=== PATIENT | male | born 1965 | race Caucasian/White ===

== ENCOUNTER 2017-10-29 21:28 | Emergency (ER) | payer OTHER, SELFPAY ==
[2017-10-29 21:28] VITALS: BP 160/71; PULSE 82; RESP 20; TEMP 36.8; O2SAT 98; BMI 48.9
--- NOTE | 2017-10-29 21:49 | ED.VISSUMM ---
- ER Visit Summary Date of Service: 10/29/17 Chief Complaint: Laceration to the left foot History of Present Illness: The patient is a 52 M with no primary care physician. He reports he was walking barefoot through the garage and cut his left foot on a tool. He reports he has pains when a 10 severity. He denies any paresthesias distally. His tetanus is not up-to-date. Physical Examination: Vitals: Stable. Afebrile. General: Well-nourished and well-developed. Head: Normocephalic atraumatic. Neck: Supple, no lymphadenopathy. No JVD. Nontender. Cardiovascular: Regular rate and rhythm. No murmurs. Respiratory: No respiratory distress. Clear to auscultation bilaterally. Abdominal: Soft, nontender, nondistended, normal bowel sounds. No guarding, rebound, or peritoneal signs. Back: Nontender. Extremities: 3 cm laceration on the plantar surface of his left foot distally. This is over the fourth metatarsal. This extends to the dermis only. There is no bleeding. Skin: Normal color, no rash. Neurologic: Alert and oriented ?3. Cranial nerves II through XII are intact. Normal strength and sensation. Psych: Normal affect. Emergency Department Course and Treatment: Treatment options were discussed with the patient. He would prefer to let this heal by secondary intention. I feel that is reasonable course of action. He had his tetanus updated. Treatment Plan: Patient will be discharged instructions follow-up Dr. Gee in 1 week if not improving. Return to the emergency department for any worsening symptoms. Disposition: To home in improved and stable condition. Impression: 1. Laceration left foot, 3 cm, not repaired. This note was generated with [employer] Mobile dictation software. It may contain incorrect words, spelling, and punctuation that were not noted in review of the chart prior to signing ED Disposition - Plan for ED Patient: Chief Complaint: Laceration Instructions: ED Laceration Small Superf No Sutr Referrals: Aj Gee DPM [STAFF PHYSICIAN] - 1 Week if not improving
[2017-10-29] MEDS: Diphth,Pertuss(Acell),Tet Vac 0.5 ML Vial IM (22:00)
== END 2017-10-29 22:02 | disposition home or self-care (01) ==
LOC: ED 21:57
PROVIDERS: Emergency Provider Emergency Medicine
DX: S91.312A Laceration without foreign body, left foot, initial encounter (principal); Z23 Encounter for immunization; Z87.891 Personal history of nicotine dependence; W27.8XXA Contact with other nonpowered hand tool, initial encounter; Y93.01 Activity, walking, marching and hiking; Y92.008 Other place in unspecified non-institutional (private) residence as the place of occurrence of the external cause; Y99.8 Other external cause status
CPT/HCPCS: 90471; 90715; 99283

== ENCOUNTER 2021-06-02 10:44 | Emergency (ER) | payer OTHER, SELFPAY ==
[2021-06-02 10:45] VITALS: BP 139/102; PULSE 113; RESP 16; TEMP 36; O2SAT 95; BMI 27.4
[2021-06-02 10:58] VITALS: BP 146/100; PULSE 100; RESP 18; TEMP 36.3; O2SAT 98
[2021-06-02 12:18] LABS: Absolute Lymphocyte Count 2.28 X10^3/uL (0.83-4.51); Absolute Neutrophil Count 6.1 X10^3/uL (2.0-7.7); Basophil# 0.03 X10^3/uL; Basophil% 0.3 % (0-1); Eosinophil# 0.03 X10^3/uL; Eosinophils% 0.3 % (0-5); Hematocrit 50.2 % (40-54); Hemoglobin 17.2 g/dL (13.0-16.5); Lymphocyte # 2.28 X10^3/ul (0.83-4.51); Lymphocyte % 24.7 % (19-41); Mean Corp Hgb Conc 34.3 g/dL (32-36); Mean Corpuscular Hgb 29.5 pg (27.0-32.0); Monocyte# 0.78 X10^3/uL; Monocyte% 8.4 % (0-10); NRBC Flagged by Analyzer 0 % (0-5); Neutrophil # 6.09 X10^3/uL (2.7-7.7); Platelet Count 352 K/mm3 (150-450); RBC Distribution Width CV 11.8 % (11.6-14.6); RBC Distribution Width SD 36.7 fl (35.1-43.9); Red Blood Count 5.84 M/mm3 (4.6-6.2); White Blood Count 9.2 K/mm3 (4.4-11.0)
[2021-06-02 12:29] LABS: ALB/GLOB Ratio 0.9 RATIO (0.9-2.4); AST(SGOT) 9 U/L (15-37); Alanine Aminotransfer ALT/SGPT 19 U/L (16-61); Albumin, Serum 3.9 g/dL (3.2-5.0); Alkaline Phosphatase 97 U/L (45-117); Anion Gap 11 (5-15); BUN 13 mg/dL (7-18); BUN/Creat Ratio 13.1 RATIO (10-20); Calcium,Total 9.6 mg/dL (8.5-10.1); Chloride 92 mmol/L (98-107); EST Glomerular Filtration Rate 82 mL/min (>60); Est Glom Filt Rate - Afr Amer 99 mL/min (>60); Estimated Creatinine Clearance 72.66 ml/min; Globulin 4.4 g/dL (2.2-4.2); Glucose 306 mg/dL (74-106); Lipase 52 U/L (73-393); Potassium 4.1 mmol/L (3.5-5.1); Protein, Total 8.3 g/dL (6.4-8.2); Sodium Level 131 mmol/L (136-145)
[2021-06-02 12:45] VITALS: BP 134/85; PULSE 72; RESP 14; O2SAT 98
[2021-06-02] MEDS: Ondansetron 4 MG/2 ML Vial IV (12:50)
[2021-06-02] MEDS: 0.9% Normal Saline 1,000 ML 1000 ML IV (12:50)
[2021-06-02 13:13] LABS: Mucous, Urine 0 SEEN /hpf (<or=2+); Red Blood Cells-Urine 0 SEEN /hpf (0-5); White Blood Cells 0 SEEN /hpf (0-5)
[2021-06-02 13:16] LABS: Color, Urine Yellow (Yellow); Glucose, Dipstick 1000 mg/dl (Normal); Leukocyte Esterase-Dipstick Negative /ul (Negative); Nitrite-Dipstick Negative (Negative); Occult Blood-Urine Negative /ul (Negative); Protein-Dipstick 15 mg/dl (Negative); Urine Bilirubin Dipstick Negative (Negative); Urine Clarity Clear (Clear); Urine Urobilinogen Normal (Normal)
[2021-06-02 13:28] LABS: Bacteria RARE /hpf (None Seen); Ketone-Dipstick 150 mg/dl (Negative); Squamous Epithelial Cells - UA 0-5 SEEN /hpf (0-5)
[2021-06-02 14:00] VITALS: BP 138/64; PULSE 80; RESP 16; O2SAT 98
--- NOTE | 2021-06-02 14:48 | EDS_ITS ---
HPI History of Present Illness Chief Complaint: Nausea/Vomiting Informant: patient Onset/Context/Timing Onset: Days (5) Context: Gradual Onset Timing: Continuous Quality: Dull, aching Location: Generalized abdomen Worsened by: Eating, drinking Relieved by: Nothing Narrative Narrative: Patient presents with nausea and vomiting that has been constant for the past 5 days. Patient states he has aching pain across his abdomen. Patient states it is worse whenever he tries to eat or drink anything. Patient states nothing makes it better. Patient states anytime he tries to eat or drink anything he vomits right back up. Patient denies any chest pain or shortness of breath. Patient denies any diarrhea, melena, or hematochezia. Patient denies any urinary complaints. PFSH PFSH Medical History no medical history Home Medications metformin 500 mg PO BID #14 tab 06/02/21 [Rx Last Taken Unknown] ondansetron 4 mg PO Q8H PRN PRN #10 tab 06/02/21 [Rx Last Taken Unknown] Allergy/AdvReac Type Severity Reaction Status Date / Time No Known Allergies Allergy Verified 06/02/21 10:48 Surgical History no surgical history Social History Smoking Status: Never smoker ROS ROS ED Constitutional Constitutional ED: Denies chills or fever(s) Eyes Eyes: Denies blurry vision or change in vision ENT ENT ED: Denies rhinorrhea or sore throat Cardiovascular Cardiovascular: Denies chest pain or palpitations Respiratory/Chest Respiratory/Chest: Denies cough or dyspnea Gastrointestinal Gastrointestinal: Reports nausea and vomiting; Denies abdominal pain, diarrhea or melena Genitourinary Genitourinary ED: Denies dysuria or hematuria Musculoskeletal Musculoskeletal: Reports back pain; Denies neck pain Integumentary Denies abscess or rash Neurologic Neurologic: Denies headache(s) or weakness Allergic/Immunologic Allergic/Immunologic ED: Denies mouth swelling or urticaria EXAM Physical Exam Const Vital Signs: 06/02/21 10:45 06/02/21 10:58 06/02/21 12:45 Temperature 96.8 F L 97.4 F L Temperature Source Temporal Temporal Pulse Rate 113 H 100 72 Respiratory Rate 16 18 14 Blood Pressure 139/102 H 146/100 H 134/85 H Blood Pressure Mean 114 115 101 Pulse Ox 95 98 98 Oxygen Delivery Method Room Air Room Air Room Air 06/02/21 14:00 Temperature Temperature Source Pulse Rate 80 Respiratory Rate 16 Blood Pressure 138/64 H Blood Pressure Mean 88 Pulse Ox 98 Oxygen Delivery Method Room Air Positive well nourished and well developed General Appearance ED: well developed HEENT Reports moist mucous membranes Neck supple and no JVD Resp normal respiratory effort and clear to auscultation bilaterally Cardio regular rate, regular rhythm and no murmurs GI normal to inspection, nondistended, normoactive bowel sounds GI Narrative: There is very mild diffuse tenderness. There is no rebound or guarding noted. Palpation: soft; Negative for guarding or rebound tenderness present Extremity normal to inspection General Extremety ED: Negative for edema or tenderness General Extremity: Negative for edema Neuro oriented x3, CN's II-XII intact bilaterally and no sensory deficits noted Sensorium / Orientation: alert Motor Exam: strength 5/5 throughout Psych mental status grossly normal Skin no rashes or lesions noted MDM MDM MDM Narrative Medical decision making narrative: Patient was given IV fluids and Zofran here. CBC shows a hemoglobin of 7.2 but was otherwise within normal limits. Comprehensive metabolic profile shows a glucose of 306 with a sodium of 131 and chloride of 92. Anion gap is normal. CO2 is normal. Lipase is normal. Urinalysis shows glucose of 8000 and ketones of 150. There is no evidence of ur inary tract infection. Serum acetone was ordered. This was negative. Patient was advised of his findings. Patient states he will follow-up with his 's primary care physician Dr. Gregory Barnes. Patient was instructed to follow-up in 3 to 5 days. Patient was given a prescription for Metformin. Patient was also given a prescription for Zofran. Patient was instructed to return if worse in any way. Patient understood and was agreeable with the plan. All questions were answered. Lab Data Attestation: I reviewed the patient's lab results. Labs: Laboratory Results - last 24 hr 06/02/21 06/02/21 06/02/21 11:10 11:10 13:07 WBC 9.2 RBC 5.84 Hgb 17.2 H Hct 50.2 MCV 86.0 MCH 29.5 MCHC 34.3 RDW Std Deviation 36.7 RDW Coeff of Cassy 11.8 Plt Count 352 MPV 10.0 Immature Gran % (Auto) 0.300 Neut % (Auto) 66.0 Lymph % (Auto) 24.7 [place] % (Auto) 8.4 Eos % (Auto) 0.3 Baso % (Auto) 0.3 Absolute Neuts (auto) 6.1 Absolute Lymphs (auto) 2.28 Nucleated RBC % 0 Sodium 131 L Potassium 4.1 Chloride 92 L Carbon Dioxide 28.0 Anion Gap 11 BUN 13 Creatinine 1.00 Estim Creat Clear Calc 72.66 Est GFR (MDRD) Af Amer 99 Est GFR (MDRD) Non-Af 82 BUN/Creatinine Ratio 13.1 Glucose 306 H Calcium 9.6 Total Bilirubin 1.00 AST 9 L ALT 19 Alkaline Phosphatase 97 Total Protein 8.3 H Albumin 3.9 Globulin 4.4 H Albumin/Globulin Ratio 0.9 Lipase 52 L Urine Color Yellow Urine Clarity Clear Urine pH 5.0 Ur Specific [place] 1.030 Urine Protein 15 H Urine Glucose (UA) 1000 H Urine Ketones 150 A* Urine Occult Blood Negative Urine Nitrite Negative Urine Bilirubin Negative Urine Urobilinogen Normal Ur Leukocyte Esterase Negative Urine RBC 0 SEEN Urine WBC 0 SEEN Ur Squamous Epith Cells 0-5 SEEN Urine Bacteria RARE Urine Mucus 0 SEEN Acetone Level 06/02/21 14:18 WBC RBC Hgb Hct MCV MCH MCHC RDW Std Deviation RDW Coeff of Cassy Plt Count MPV Immature Gran % (Auto) Neut % (Auto) Lymph % (Auto) [place] % (Auto) Eos % (Auto) Baso % (Auto) Absolute Neuts (auto) Absolute Lymphs (auto) Nucleated RBC % Sodium Potassium Chloride Carbon Dioxide Anion Gap BUN Creatinine Estim Creat Clear Calc Est GFR (MDRD) Af Amer Est GFR (MDRD) Non-Af BUN/Creatinine Ratio Glucose Calcium Total Bilirubin AST ALT Alkaline Phosphatase Total Protein Albumin Globulin Albumin/Globulin Ratio Lipase Urine Color Urine Clarity Urine pH Ur Specific [place] Urine Protein Urine Glucose (UA) Urine Ketones Urine Occult Blood Urine Nitrite Urine Bilirubin Urine Urobilinogen Ur Leukocyte Esterase Urine RBC Urine WBC Ur Squamous Epith Cells Urine Bacteria Urine Mucus Acetone Level NEGATIVE Discharge Plan Triage Chief Complaint: Nausea/Vomiting ED Provider: Pepe Cha Dx/Rx/DC Orders Clinical Impression: Diabetes mellitus type 2 in nonobese Instructions: ED Diabetes- Overview, ED Vomiting (Adult), ED Diet: Diabetes Prescriptions: New ondansetron [ondansetron] 4 MG tablet 4 mg PO Q8H PRN PRN (Reason: Nausea) Qty: 10 RF: 0 metformin 500 mg tablet 500 mg PO BID Qty: 14 RF: 0 Primary Care Provider: Care Physician,No Primary Referrals: Gregory Barnes DO [NON-STAFF] - 3-5 Days Care Physician,No Primary [Primary Care Provider] - Disposition Disposition: Home, Self Care
[2021-06-02 15:02] VITALS: BP 154/88; PULSE 84; RESP 16; TEMP 37.2; O2SAT 98
== END 2021-06-02 15:04 | disposition home or self-care (01) ==
PROVIDERS: Emergency Provider Emergency Medicine; Visit Provider Emergency Medicine
DX: E11.9 Type 2 diabetes mellitus without complications (principal); R11.2 Nausea with vomiting, unspecified; Z79.84 Long term (current) use of oral hypoglycemic drugs
CPT/HCPCS: 80053; 81001; 82009; 83690; 85025; 96361; 96374; 99283; J7030; A4216; J2405

== ENCOUNTER 2021-12-01 07:42 | Emergency (ER) | payer OTHER, SELFPAY ==
[2021-12-01 07:43] VITALS: BP 152/107; PULSE 51; RESP 14; TEMP 36.6; O2SAT 98; BMI 26.7
--- NOTE | 2021-12-01 07:51 | CT_ITS ---
STUDY: CT ABDOMEN AND PELVIS WITHOUT CONTRAST REASON FOR EXAM: Male, 56 years old. Diffuse abdominal pain RADIATION DOSAGE (If Supplied By Facility): CTDIvol = ( 8.38 ) mGy, DLP = ( 350.89 ) mGycm TECHNIQUE: Transaxial images were obtained from the dome of the diaphragm to the symphysis pubis without oral contrast, and without intravenous contrast. Sagittal and coronal images were reconstructed. Individualized dose optimization techniques were used for this CT. COMPARISON: None. FINDINGS: Lung bases are unremarkable aside from a 5.3 mm noncalcified nodule in the left lung base on axial image 1. Consider a dedicated CT scan of the chest to determine if any other nodules are present. The visualized portions of the heart are within normal limits. Normal liver. Normal gallbladder and extrahepatic biliary system. Normal spleen. Normal pancreas. Normal bilateral adrenal glands. Normal right kidney. Normal left kidney. Normal visualized stomach. Nondistended fluid-filled small bowel loops noted consistent with small bowel ileus this is likely due to retained stool throughout the colon. The appendix is visualized and appears normal. Appendix seen on coronal recon images 53 through 55 Normal abdominal aorta. Normal inferior vena cava. Scattered subcentimeter mesenteric and retroperitoneal lymph nodes. Normal urinary bladder. There are prostatic calcifications. Normal abdominal wall. Normal osseous structures. CT/Abdomen/Pelvis without Cont IMPRESSION: Small bowel ileus likely due to retained stool throughout the colon No free intraperitoneal fluid, air, or suspicious adenopathy, normal appendix visualized No suspicious organ abnormality 5.3 mm noncalcified nodule in the left lung base. There are no previous studies available for comparison. Consider nonemergent CT scan of the chest for further surveillance or a 6 month follow-up study to assess stability of the nodule. Electronically Signed: Souleymane Beasley MD at 8:26 EDT ,
--- NOTE | 2021-12-01 07:51 | EDS_ITS ---
HPI History of Present Illness Chief Complaint: Nausea/Vomiting Detail of Chief Complaint: Vomiting x2 days Informant: patient Onset/Context/Timing Current Severity: Mild Narrative Narrative: Patient presents to the emergency department complaint of frequent vomiting for the last 2 days. Patient states he had decreased urine output. Complains of intermittent lower abdominal pain periumbilical and right lower quadrant. Patient denies any fever. He denies diarrhea. He denies blood in the stool or black tarry stool. Denies sick contacts. Patient denies urinary symptoms. Patient is a type II diabetic and states his blood sugars have been running as high as 120 but not above. Prior similar symptoms: No PFSH PFS Medical History (Updated 12/01/21 @ 11:[address] Demario Adame DO) Diabetes Home Medications metformin 500 mg tablet 500 mg PO BID #14 tabs 06/02/21 [Rx Last Taken Unknown] insulin glargine-yfgn 100 unit/mL subcutaneous solution (Semglee (insulin glargine-yfgn)) 10 unit subcut BID 12/01/21 [History Last Taken Unknown] lisinopril 2.5 mg tablet 2.5 mg PO DAILY 12/01/21 [History Last Taken Unknown] ondansetron 4 mg disintegrating tablet 4 mg PO Q8H PRN PRN Nausea #10 tabs 12/01/21 [Rx Last Taken Unknown] promethazine 25 mg rectal suppository 25 mg IA Q6H PRN nausea and vomiting #6 ea 12/01/21 [Rx Last Taken Unknown] Allergy/AdvReac Type Severity Reaction Status Date / Time No Known Allergies Allergy Verified 12/01/21 07:44 Social History Smoking Status: Former smoker ROS ROS ED Review of Systems ROS Unobtainable: other Constitutional Constitutional ED: Reports lethargy; Denies chills, fever(s), sweats or weight loss Eyes Eyes: Denies blurry vision, change in vision or diplopia ENT ENT ED: Denies rhinorrhea or sore throat Cardiovascular Cardiovascular: Reports racing heartbeat; Denies chest pain or orthopnea Respiratory/Chest Respiratory/Chest: Reports dyspnea and dyspnea on exertion; Denies cough, orthopnea or sputum Gastrointestinal Gastrointestinal: Reports abdominal pain, nausea and vomiting; Denies diarrhea Genitourinary Genitourinary ED: Denies dysuria, hematuria or urinary frequency Musculoskeletal Musculoskeletal: Denies arthralgias, back pain, myalgias or neck pain Integumentary Denies abscess, Abrasions or rash Neurologic Neurologic: Denies headache(s) or weakness Psychiatric Psychiatric: Denies anxiety, depression or suicidal thoughts Endocrine Endocrinology: Denies polydipsia, polyphagia or polyuria Hematologic/Lymphatic Hematologic/Lymphatic: Denies easy bleeding, easy bruising or lymphadenopathy Allergic/Immunologic Allergic/Immunologic ED: Denies mouth swelling, tongue swelling or urticaria EXAM Physical Exam Const Vital Signs: 12/01/21 07:43 Temperature 97.8 F Temperature Source Temporal Pulse Rate 51 L Respiratory Rate 14 Blood Pressure 152/107 H Blood Pressure Mean 122 Pulse Ox 98 Oxygen Delivery Method Room Air Positive well nourished and well developed General Appearance ED: well developed and NAD HEENT Reports TM's clear and moist mucous membranes normocephalic and atraumatic; Negative for trauma or tenderness Tympanic Membrane ED: Yes TM's clear Eyes PERRL and EOMs intact bilaterally General Eye ED: Negative for pale conjunctiva or scleral icterus Neck no lymphadenopathy, supple and no JVD General: Negative for tenderness Chest Wall inspection of chest normal and palpation of chest normal Chest: Negative for tenderness Resp normal respiratory effort and clear to auscultation bilaterally Effort and Inspection: Negative for respiratory distress or pain with movement Auscultation: Negative for rhonchi, wheezes or diminished lung sounds Cardio regular rate, regular rhythm, S1 normal heart sound, S2 normal heart sound and no murmurs Peripheral Pulses: pulses 2+ throughout GI normal to inspection, nondistended, normoactive bowel sounds, soft to palpation, non-distended and no masses GI Narrative: Active bowel sounds noted. Patient with some tenderness to the right lower quadrant and periumbilical region. There is no rebound, rigidity, or peritoneal signs. Back/Spine no CVA tenderness and no thoracic nor lumbar tenderness Extremity normal to inspection General Extremety ED: Negative for edema General Extremity: Negative for edema Neuro oriented x3, CN's II-XII intact bilaterally, no sensory deficits noted and gait normal Sensorium / Orientation: awake, alert, oriented to person, oriented to place and oriented to time Motor Exam: strength 5/5 throughout and strength abnormal Psych mental status grossly normal Skin no rashes or lesions noted and no wounds MDM MDM MDM Narrative Medical decision making narrative: IV line established on arrival. Patient was given Zofran 4 mg IV. He did vomit 2 more times and was given Reglan 10 mg IV as well as Benadryl. He had no further vomiting. Lab work-up was unremarkable. CT scan of the abdomen pelvis showed small bowel ileus due to retained stool. Patient also had a 5.3 mm noncalcified nodule in left lung base for which they recommended a repeat CT in 6 months. I discussed all results with patient. I spoke suspect patient likely has a viral syndrome. Patient states his last bowel movement was 3 days ago which is not unusual for him. Patient will be given a prescription for Zofran ODT as well as Phenergan suppositories. He is to follow-up with primary care physician within next 3 to 5 days. Patient to return if worsening abdominal pain, fever, persistent vomiting, or condition should worsen anyway. Lab Data Attestation: I reviewed the patient's lab results. Labs: Laboratory Results - last 24 hr 12/01/21 12/01/21 12/01/21 08:30 08:30 09:18 WBC 9.8 RBC 5.34 Hgb 16.1 Hct 47.1 MCV 88.2 MCH 30.1 MCHC 34.2 RDW Std Deviation 39.7 RDW Coeff of Cassy 12.3 Plt Count 358 MPV 8.8 Immature Gran % (Auto) 0.400 Neut % (Auto) 79.4 H Lymph % (Auto) 14.4 [place] % (Auto) 5.6 Eos % (Auto) 0.0 Baso % (Auto) 0.2 Absolute Neuts (auto) 7.8 H Absolute Lymphs (auto) 1.41 Nucleated RBC % 0 Sodium 137 Potassium 3.7 Chloride 102 Carbon Dioxide 28.0 Anion Gap 7 BUN 18 Creatinine 0.99 Estim Creat Clear Calc 76.04 Est GFR (MDRD) Af Amer 100 Est GFR (MDRD) Non-Af 83 BUN/Creatinine Ratio 18.2 Glucose 125 H Calcium 9.7 Total Bilirubin 1.30 H AST 16 ALT 21 Alkaline Phosphatase 63 Total Protein 8.3 H Albumin 4.1 Globulin 4.2 Albumin/Globulin Ratio 1.0 Lipase 57 L Urine Color Yellow Urine Clarity Sl. Cloudy Urine pH 8.0 Ur Specific [place] 1.015 Urine Protein 15 H Urine Glucose (UA) Normal Urine Ketones 150 A* Urine Occult Blood Negative Urine Nitrite Negative Urine Bilirubin Negative Urine Urobilinogen 1 H Ur Leukocyte Esterase 25 H Urine RBC 0 SEEN Urine WBC 0 SEEN Ur Squamous Epith Cells 0 SEEN Amorphous Sediment 2+ Urine Bacteria 0 SEEN Urine Mucus 2+ Radiography Diagnostic Testing: Clinical Impression(s) from Imaging Studies Abdomen/Pelvis CT 12/01/21 07:51 IMPRESSION: Small bowel ileus likely due to retained stool throughout the colon No free intraperitoneal fluid, air, or suspicious adenopathy, normal appendix visualized No suspicious organ abnormality 5.3 mm noncalcified nodule in the left lung base. There are no previous studies available for comparison. Consider nonemergent CT scan of the chest for further surveillance or a 6 month follow-up study to assess stability of the nodule. Electronically Signed: Souleymane Beasley MD at 8:26 EDT Reading Location ID and State: [address] [place] [address] , Service support , Discharge Plan Triage Chief Complaint: Nausea/Vomiting ED Provider: Demario Adame Dx/Rx/DC Orders Clinical Impression: Acute viral syndrome, Vomiting Instructions: ED Viral Syndrome (Adult), ED Vomiting (Adult) Prescriptions: New ondansetron [ondansetron] 4 mg tablet,disintegrating 4 mg PO Q8H PRN PRN (Reason: Nausea) Qty: 10 0RF promethazine 25 mg suppository 25 mg IA Q6H PRN (Reason: nausea and vomiting) Qty: 6 0RF No Action metformin 500 mg tablet 500 mg PO BID Qty: 14 0RF lisinopril 2.5 mg tablet 2.5 mg PO DAILY Label Comments: TAKE 1 TABLET BY MOUTHEONCE DAILY insulin glargine-yfgn [Semglee(insulin glargine-yfgn)] 100 unit/mL solution 10 unit subcut BID Label Comments: INJECT 10 UNITSCSUBCUTANEOUSLY 2 TIMES A DAY Primary Care Provider: Gregory Barnes Referrals: Care Physician,No Primary [NON-STAFF] - Activity Restrictions/Additional Instructions: See your primary care physician in 3 to 5 days. Disposition Disposition: Home, Self Care
[2021-12-01] MEDS: 0.9% Normal Saline 1,000 ML 125 ML IV (08:23)
[2021-12-01] MEDS: Ondansetron 4 MG/2 ML Vial IV (08:23)
[2021-12-01 08:40] LABS: Absolute Lymphocyte Count 1.41 X10^3/uL (0.83-4.51); Absolute Neutrophil Count 7.8 X10^3/uL (2.0-7.7); Basophil# 0.02 X10^3/uL; Basophil% 0.2 % (0-1); Hematocrit 47.1 % (40-54); Hemoglobin 16.1 g/dL (13.0-16.5); Lymphocyte # 1.41 X10^3/ul (0.83-4.51); Lymphocyte % 14.4 % (19-41); Mean Corp Hgb Conc 34.2 g/dL (32-36); Mean Corpuscular Hgb 30.1 pg (27.0-32.0); Mean Corpuscular Volume 88.2 fL (80-94); Mean Platelet Vol. 8.8 fl (6.2-12.0); Monocyte# 0.55 X10^3/uL; Monocyte% 5.6 % (0-10); NRBC Flagged by Analyzer 0 % (0-5); Neutrophil # 7.75 X10^3/uL (2.7-7.7); Neutrophil % 79.4 % (47-70); Platelet Count 358 K/mm3 (150-450); RBC Distribution Width CV 12.3 % (11.6-14.6); RBC Distribution Width SD 39.7 fl (35.1-43.9); Red Blood Count 5.34 M/mm3 (4.6-6.2); White Blood Count 9.8 K/mm3 (4.4-11.0)
[2021-12-01 08:59] LABS: AST(SGOT) 16 U/L (15-37); Alanine Aminotransfer ALT/SGPT 21 U/L (16-61); Albumin, Serum 4.1 g/dL (3.2-5.0); Alkaline Phosphatase 63 U/L (45-117); Anion Gap 7 (5-15); BUN 18 mg/dL (7-18); BUN/Creat Ratio 18.2 RATIO (10-20); Calcium,Total 9.7 mg/dL (8.5-10.1); Chloride 102 mmol/L (98-107); Creatinine, Serum 0.99 mg/dL (0.70-1.30); EST Glomerular Filtration Rate 83 mL/min (>60); Est Glom Filt Rate - Afr Amer 100 mL/min (>60); Estimated Creatinine Clearance 76.04 ml/min; Globulin 4.2 g/dL (2.2-4.2); Glucose 125 mg/dL (74-106); Lipase 57 U/L (73-393); Potassium 3.7 mmol/L (3.5-5.1); Protein, Total 8.3 g/dL (6.4-8.2); Sodium Level 137 mmol/L (136-145)
[2021-12-01 09:28] LABS: Bacteria 0 SEEN /hpf (None Seen); Color, Urine Yellow (Yellow); Glucose, Dipstick Normal (Normal); Leukocyte Esterase-Dipstick 25 /ul (Negative); Nitrite-Dipstick Negative (Negative); Occult Blood-Urine Negative /ul (Negative); Protein-Dipstick 15 mg/dl (Negative); Red Blood Cells-Urine 0 SEEN /hpf (0-5); Specific Gravity, Urine 1.015 (1.002-1.030); Squamous Epithelial Cells - UA 0 SEEN /hpf (0-5); Urine Bilirubin Dipstick Negative (Negative); Urine Clarity Sl. Cloudy (Clear); Urine Urobilinogen 1 mg/dl (Normal); White Blood Cells 0 SEEN /hpf (0-5)
[2021-12-01 09:33] LABS: Ketone-Dipstick 150 mg/dl (Negative)
[2021-12-01 09:38] LABS: Amorphous Sediment 2+; Mucous, Urine 2+ /hpf (<or=2+)
[2021-12-01] MEDS: DiphenhydrAMINE 50 MG/ML Syringe 25 MG IV (10:04)
[2021-12-01] MEDS: Metoclopramide 10 MG/2 ML Vial IV (10:05)
[2021-12-01 11:50] VITALS: PULSE 57; RESP 17; O2SAT 97
== END 2021-12-01 11:56 | disposition home or self-care (01) ==
PROVIDERS: Emergency Provider Emergency Medicine; PCP Family Medicine; Visit Provider Emergency Medicine
DX: B34.9 Viral infection, unspecified (principal); K56.7 Ileus, unspecified; E11.9 Type 2 diabetes mellitus without complications; R11.2 Nausea with vomiting, unspecified; R91.1 Solitary pulmonary nodule; Z87.891 Personal history of nicotine dependence
CPT/HCPCS: 74176; 80053; 81001; 83690; 85025; 96361; 96374; 96375; 99282; J7030; A4216; J2405

== ENCOUNTER 2022-04-01 09:29 | Emergency (ER) | payer OTHER, SELFPAY ==
[2022-04-01 09:29] VITALS: BP 130/93; PULSE 75; RESP 16; TEMP 36.3; O2SAT 100; BMI 28.7
--- NOTE | 2022-04-01 09:37 | EDS_ITS ---
HPI History of Present Illness Chief Complaint: Nausea/Vomiting Narrative Narrative: 57-year-old male here for nausea vomiting. No abdominal pain. Symptoms going on for last 2 days. States symptoms are constant, severe without alleviating factors. States he tried Zofran with no relief. No diarrhea. No sick contacts Chart reviewed: CT scan from November 2021 shows ileus no other acute abnormality. PFSH PFSH Medical History Diabetes Home Medications metformin 500 mg tablet 500 mg PO BID #14 tabs 06/02/21 [Rx Last Taken Unknown] lisinopril 2.5 mg tablet 2.5 mg PO DAILY 12/01/21 [History Last Taken Unknown] metoclopramide HCl 5 mg tablet (Reglan) 5 mg PO Q8H PRN PRN nausea and vomiting 7 days #21 tabs 04/01/22 [Rx Last Taken Unknown] Allergy/AdvReac Type Severity Reaction Status Date / Time No Known Allergies Allergy Verified 04/01/22 09:31 Social History Smoking Status: Former smoker ROS ROS ED ROS Narrative Constitutional: Denies fever HEENT: Denies sore throat Neck: Denies neck pain Cardiovascular: Denies chest pain, syncope Respiratory: Denies shortness of breath GI: Endorses nausea and vomiting : Denies changes in urinary habits Musculoskeletal: Denies muscle or joint pain Neurologic: Denies numbness weakness or loss of sensation Skin denies rash EXAM Physical Exam Narrative Exam Narrative: Nursing triage notes reviewed, Vital signs reviewed Constitutional: please see mdm HENT: MMM Eyes: Pupils equal round and reactive to light, Extraocular muscles intact Neck: No stridor, no JVD, full neck ROM Lungs: Clear to auscultation, No wheezing or rales. No increased work of breathing, no conversational dyspnea, no accessory muscle use, no nasal flaring. No respiratory distress noted Heart: Regular rate and rhythm, No murmurs, No rubs and No gallops, 2+ distal pulses (radial, femoral, posterior tibial) in all extremities Abdomen: Soft, there is no tenderness, rigidity, rebound or guarding, no obvious peritoneal signs, no palpable pulsatile abdominal masses, no auscultated abdominal bruit : No CVAT Extremities: No edema Neuro: No focal neurological deficits, cranial nerves II through XII intact, 5/5 strength in all extremities. Intact sensation to light touch in all extremities, 2+ reflexes bilateral patella dens. Normal gait. No ataxia. Skin: No rash or lesions noted Const Vital Signs: 04/01/22 09:29 04/01/22 14:38 04/01/22 14:52 Temperature 97.3 F L Temperature Source Temporal Pulse Rate 75 79 86 Respiratory Rate 16 14 15 Blood Pressure 130/93 H 138/74 H Blood Pressure Mean 105 Pulse Ox 100 100 98 Oxygen Delivery Method Room Air Room Air MDM MDM MDM Narrative Medical decision making narrative: 57-year-old male here with nausea vomiting in the setting of type 2 diabetes patient was hemodynamically stable, afebrile, nontoxic-appearing. Exam without peritoneal signs. No abdominal tenderness on my exam. Low suspicion for surgical process in the abdomen. No indication for advanced imaging at this time concern for dehydration, electrolyte abnormalities. Gave nausea medicine and fluids. Also considered metformin induced lactic acidosis. Patient's lactate was mildly elevated given a liter of fluid and repeated this test which showed complete resolution. There are no significant electrolyte abnormalities, no significant anion gap, hyperglycemia to suggest DKA. No significant leukocytosis to suggest systemic inflammation. Obtained a p.o. challenge. Patient was able to tolerate p.o. here in the emergency department was given Reglan, Pepcid for home-going. Lab Data Attestation: I reviewed the patient's lab results. Lab results narrative: CBC with no leukocytosis, no anemia, no thrombocytopenia BMP without evidence of significant electrolyte abnormalities, no anion gap, no acute kidney injury. LFTs show no evidence of hepatobiliary pathology. Lipase is wnl indicating no pancreatic inflammation. Lactate mildly elevated indicative end-organ hypoperfusion likely secondary to volume loss from vomiting we will give another liter of fluid repeat lactate Repeat lactate within normal limits Labs: Laboratory Results - last 24 hr 04/01/22 04/01/22 04/01/22 10:40 10:40 10:40 WBC 8.3 RBC 5.65 Hgb 17.0 H Hct 48.4 MCV 85.7 MCH 30.1 MCHC 35.1 RDW Std Deviation 38.5 RDW Coeff of Cassy 12.4 Plt Count 344 MPV 9.0 Immature Gran % (Auto) 0.100 Neut % (Auto) 81.3 H Lymph % (Auto) 14.4 L Whiteside % (Auto) 4.1 Eos % (Auto) 0.0 Baso % (Auto) 0.1 Absolute Neuts (auto) 6.7 Absolute Lymphs (auto) 1.19 Nucleated RBC % 0 Sodium 134 L Potassium 4.3 Chloride 101 Carbon Dioxide 26.0 Anion Gap 7 BUN 19 H Creatinine 0.98 Estim Creat Clear Calc 73.24 Est GFR (MDRD) Af Amer 100 Est GFR (MDRD) Non-Af 83 BUN/Creatinine Ratio 19.3 Glucose 153 H Lactic Acid 2.1 H* Calcium 9.8 Total Bilirubin 1.00 Direct Bilirubin 0.24 AST 12 L ALT 17 Alkaline Phosphatase 71 Total Protein 8.4 H Albumin 4.1 Globulin 4.3 H Lipase 142 04/01/22 12:27 WBC RBC Hgb Hct MCV MCH MCHC RDW Std Deviation RDW Coeff of Cassy Plt Count MPV Immature Gran % (Auto) Neut % (Auto) Lymph % (Auto) Whiteside % (Auto) Eos % (Auto) Baso % (Auto) Absolute Neuts (auto) Absolute Lymphs (auto) Nucleated RBC % Sodium Potassium Chloride Carbon Dioxide Anion Gap BUN Creatinine Estim Creat Clear Calc Est GFR (MDRD) Af Amer Est GFR (MDRD) Non-Af BUN/Creatinine Ratio Glucose Lactic Acid 1.5 Calcium Total Bilirubin Direct Bilirubin AST ALT Alkaline Phosphatase Total Protein Albumin Globulin Lipase EKG Initial EKG: Comments: EKG with normal sinus rhythm, left axis deviation, normal intervals, no STEMI Treatment and Re-Evaluation Narrative: Patient was able tolerate p.o. Discharged with Reglan. Shared decision making: I had a long discussion with the patient and or visitors regarding risk/benefits of further testing or admission. They decided to forego any further testing or admission. They are aware of of the risk/benefits inherent in this decision and have voiced understanding. Discharge Plan Triage Chief Complaint: Nausea/Vomiting ED Provider: Guillaume Peters Dx/Rx/DC Orders Instructions: ED Diet Vomiting Diarrhea Prescriptions: New metoclopramide HCl [Reglan] 5 mg tablet 5 mg PO Q8H PRN PRN (Reason: nausea and vomiting) 7 Days Qty: 21 0RF No Action metformin 500 mg tablet 500 mg PO BID Qty: 14 0RF lisinopril 2.5 mg tablet 2.5 mg PO DAILY Label Comments: TAKE 1 TABLET BY MOUTHEONCE DAILY Primary Care Provider: Gregory Barnes Referrals: Gregory Barnes DO [Primary Care Provider] - Activity Restrictions/Additional Instructions: Please take Reglan as prescribed. Disposition Disposition: Home, Self Care Discharge Date/Time: 04/01/22 14:53
--- NOTE | 2022-04-01 10:26 | NURSING ---
NO OLD EKGS
--- NOTE | 2022-04-01 10:34 | NURSING ---
NO OLD EKGS
[2022-04-01 10:54] LABS: Absolute Lymphocyte Count 1.19 X10^3/uL (0.83-4.51); Absolute Neutrophil Count 6.7 X10^3/uL (2.0-7.7); Basophil# 0.01 X10^3/uL; Basophil% 0.1 % (0-1); Hematocrit 48.4 % (40-54); Lymphocyte # 1.19 X10^3/ul (0.83-4.51); Lymphocyte % 14.4 % (19-41); Mean Corp Hgb Conc 35.1 g/dL (32-36); Mean Corpuscular Hgb 30.1 pg (27.0-32.0); Mean Corpuscular Volume 85.7 fL (80-94); Monocyte# 0.34 X10^3/uL; Monocyte% 4.1 % (0-10); NRBC Flagged by Analyzer 0 % (0-5); Neutrophil # 6.71 X10^3/uL (2.7-7.7); Neutrophil % 81.3 % (47-70); Platelet Count 344 K/mm3 (150-450); RBC Distribution Width CV 12.4 % (11.6-14.6); RBC Distribution Width SD 38.5 fl (35.1-43.9); Red Blood Count 5.65 M/mm3 (4.6-6.2); White Blood Count 8.3 K/mm3 (4.4-11.0)
[2022-04-01] MEDS: 0.9% Normal Saline 1,000 ML 1000 ML IV (11:08)
[2022-04-01] MEDS: Metoclopramide 10 MG/2 ML Vial IV (11:08)
[2022-04-01] MEDS: Famotidine 200 MG/20 ML MDV 20 MG in 0.9% Normal Saline (Pres. free 8 ML 300 MG IV (11:09)
[2022-04-01 11:12] LABS: AST(SGOT) 12 U/L (15-37); Alanine Aminotransfer ALT/SGPT 17 U/L (16-61); Albumin, Serum 4.1 g/dL (3.2-5.0); Alkaline Phosphatase 71 U/L (45-117); Anion Gap 7 (5-15); BUN 19 mg/dL (7-18); BUN/Creat Ratio 19.3 RATIO (10-20); Bilirubin, Direct 0.24 mg/dL (0.00-0.30); Calcium,Total 9.8 mg/dL (8.5-10.1); Chloride 101 mmol/L (98-107); Creatinine, Serum 0.98 mg/dL (0.70-1.30); EST Glomerular Filtration Rate 83 mL/min (>60); Est Glom Filt Rate - Afr Amer 100 mL/min (>60); Estimated Creatinine Clearance 73.24 ml/min; Globulin 4.3 g/dL (2.2-4.2); Glucose 153 mg/dL (74-106); Lipase 142 U/L (73-393); Potassium 4.3 mmol/L (3.5-5.1); Protein, Total 8.4 g/dL (6.4-8.2); Sodium Level 134 mmol/L (136-145)
[2022-04-01 11:28] LABS: Lactic Acid 2.1 mmol/L (0.4-1.9)
[2022-04-01] MEDS: 0.9% Normal Saline 1,000 ML 999 ML IV (11:37)
[2022-04-01 13:15] LABS: Lactic Acid 1.5 mmol/L (0.4-1.9)
[2022-04-01 14:38] VITALS: PULSE 79; RESP 14; O2SAT 100
[2022-04-01 14:50] LABS: Reflex Lactate? Y
[2022-04-01 14:52] VITALS: BP 138/74; PULSE 86; RESP 15; O2SAT 98
== END 2022-04-01 14:53 | disposition home or self-care (01) ==
PROVIDERS: Emergency Provider Emergency Medicine; PCP Family Medicine; Visit Provider Emergency Medicine
DX: R11.2 Nausea with vomiting, unspecified (principal); K56.7 Ileus, unspecified; E11.9 Type 2 diabetes mellitus without complications; Z87.891 Personal history of nicotine dependence
CPT/HCPCS: 80048; 80076; 83605; 83690; 85025; 93005; 96361; 96374; 96375; 99283; J7030; A4216; J3490

== ENCOUNTER 2023-10-15 19:22 | Emergency (ER) | payer OTHER, SELFPAY ==
[2023-10-15 19:24] VITALS: BP 170/96; PULSE 78; RESP 18; TEMP 36.4; O2SAT 98; BMI 38.2
[2023-10-15 19:32] VITALS: O2SAT 98
--- NOTE | 2023-10-15 19:32 | EKG12_ITS ---
Test Reason : CP Blood Pressure : / mmHG Vent. Rate : 074 BPM Atrial Rate : 074 BPM P-R Int : 158 ms QRS Dur : 076 ms QT Int : 388 ms P-R-T Axes : 010 -06 -08 degrees QTc Int : 430 ms Sinus rhythm with occasional Premature ventricular complexes Borderline Confirmed by Dale Zimmerman ([id number]), editor book DILEEP ALVARADO ([id number]) on 10/19/2023 10:25:27 AM Referred By: BRETT Confirmed By:Dale Zimmerman
[2023-10-15 19:47] LABS: Absolute Lymphocyte Count 2.46 X10^3/uL (0.83-4.51); Absolute Neutrophil Count 7.9 X10^3/uL (2.0-7.7); Basophil# 0.05 X10^3/uL; Basophil% 0.4 % (0-1); Eosinophil# 0.15 X10^3/uL; Eosinophils% 1.3 % (0-5); Hematocrit 48.8 % (40-54); Hemoglobin 16.2 g/dL (13.0-16.5); Lymphocyte # 2.46 X10^3/ul (0.83-4.51); Lymphocyte % 21.2 % (19-41); Mean Corp Hgb Conc 33.2 g/dL (32-36); Mean Corpuscular Hgb 29.4 pg (27.0-32.0); Mean Corpuscular Volume 88.6 fL (80-94); Monocyte# 1.01 X10^3/uL; Monocyte% 8.7 % (0-10); NRBC Flagged by Analyzer 0 % (0-5); Neutrophil # 7.91 X10^3/uL (2.7-7.7); Neutrophil % 68.2 % (47-70); Platelet Count 294 K/mm3 (150-450); RBC Distribution Width CV 12.7 % (11.6-14.6); RBC Distribution Width SD 41.4 fl (35.1-43.9); Red Blood Count 5.51 M/mm3 (4.6-6.2); White Blood Count 11.6 K/mm3 (4.4-11.0)
--- NOTE | 2023-10-15 19:48 | EX.ED.DYSGE1 ---
HPI <HADLEY Paredes - Last Filed: 10/15/23 22:01> History of Present Illness Chief Complaint: Chest Pain Narrative Narrative: 58-year-old male with past medical history of hypertension, type 2 diabetes states at 1 PM he was sitting at his kitchen table and developed a dull pain in the left posterior shoulder. Throughout the day it started to radiate towards the front of the shoulder and down the arm and he has tingling in the fingers. He denies chest pain, shortness of breath, nausea vomiting or diaphoresis. The shoulder pain seems to slightly worsen with walking. He denies cardiac history. He states he was told he had a heart murmur years ago. [facility] <HADLEY Paredes - Last Filed: 10/15/23 22:01> [facility] Medical History (Updated 10/15/23 @ 21:58 by HADLEY Paredes) Diabetes Home Medications ?Medication ?Instructions ?Recorded ?Last Taken ?Type NK 10/15/23 Unknown History Allergy/AdvReac Type Severity Reaction Status Date / Time No Known Allergies Allergy Verified 10/15/23 20:46 Social History Smoking Status: Former smoker ROS <HADLEY Paredes - Last Filed: 10/15/23 22:01> ROS ED ROS Narrative Constitutional: Negative for fever, chills, malaise. CVS: Negative for palpitations, chest pain, syncope. Respiratory: Negative for shortness of breath, cough, orthopnea. GI: Negative for abdominal pain, nausea, vomiting. EXAM <HADLEY Paredes - Last Filed: 10/15/23 22:01> Physical Exam Narrative Exam Narrative: CONST: Patient sitting in no acute distress. EYES: Normal inspection. NECK: Normal inspection. No midline tenderness. RESP: No respiratory distress, CTAB. CVS: Regular rate and rhythm, holosystolic murmur. Back: Normal inspection. SKIN: Color normal, no rash, warm, dry, intact. EXTREMITIES: Normal appearance, full range of motion of upper and lower extremities. No reproducible tenderness of the chest, back, or left upper extremity. Symptoms do seem improved with placing his left arm above his head. 5/5 strength in shoulder abduction, elbow flexion/extension and electronic equipment repairer strength, normal sensation, 2+ radial pulses. NEURO: Alert and answering questions appropriately. PSYCH: Normal affect. Const Vital Signs: 10/15/23 19:24 10/15/23 19:32 10/15/23 20:24 Temperature 97.6 F L Temperature Source Temporal Pulse Rate 78 Respiratory Rate 18 Respiratory Effort Normal Non-Labored Blood Pressure 170/96 H Blood Pressure Mean 120 Pulse Ox 98 98 Oxygen Delivery Method Room Air Room Air 10/15/23 20:24 10/15/23 21:00 Temperature Temperature Source Pulse Rate 71 78 Respiratory Rate 19 H 18 Respiratory Effort Blood Pressure 142/96 H 142/93 H Blood Pressure Mean 111 109 Pulse Ox 94 97 Oxygen Delivery Method Room Air Room Air <Dr. Zachary Freeman MD - Last Filed: 10/15/23 22:43> Physical Exam Const Vital Signs: 10/15/23 19:24 10/15/23 19:32 10/15/23 20:24 Temperature 97.6 F L Temperature Source Temporal Pulse Rate 78 Respiratory Rate 18 Respiratory Effort Normal Non-Labored Blood Pressure 170/96 H Blood Pressure Mean 120 Pulse Ox 98 98 Oxygen Delivery Method Room Air Room Air 10/15/23 20:24 10/15/23 21:00 Temperature Temperature Source Pulse Rate 71 78 Respiratory Rate 19 H 18 Respiratory Effort Blood Pressure 142/96 H 142/93 H Blood Pressure Mean 111 109 Pulse Ox 94 97 Oxygen Delivery Method Room Air Room Air [facility] <HADLEY Paredes - Last Filed: 10/15/23 22:01> [facility] Narrative Medical decision making narrative: History gathered from: Patient and spouse Patient has left posterior shoulder pain that radiates towards the front of the shoulder and down the arm that started at rest. No chest pain or shortness of breath. Symptoms have been intermittent throughout the day. Feels better if he puts his left arm above his head. He appears well and nontoxic. He was initially hypertensive with otherwise normal vital signs. This did come down to 142/93 without intervention. On exam he has a systolic murmur which he states he is known about for years. Lungs are clear. No signs of fluid overload. No signs or symptoms of DVT are present. Basic labs overall unremarkable. EKG is nonischemic. Troponin is 9, delta pending. CXR shows no acute process. He was given aspirin when he arrived for chest pain. Also treated with IV Toradol and a GI cocktail in case this was esophageal related. He also feels somewhat better when lifting his left arm above his head so could be cervical radiculopathy. If delta troponin is negative patient will be discharged home to follow-up with his primary care doctor. Lab Data Attestation: I reviewed the patient's lab results. Labs: Laboratory Results - last 24 hr 10/15/23 10/15/23 19:40 21:53 WBC 11.6 H RBC 5.51 Hgb 16.2 Hct 48.8 MCV 88.6 MCH 29.4 MCHC 33.2 RDW Std Deviation 41.4 RDW Coeff of Cassy 12.7 Plt Count 294 MPV 9.0 Immature Gran % (Auto) 0.200 Neut % (Auto) 68.2 Lymph % (Auto) 21.2 Swift % (Auto) 8.7 Eos % (Auto) 1.3 Baso % (Auto) 0.4 Absolute Neuts (auto) 7.9 H Absolute Lymphs (auto) 2.46 Nucleated RBC % 0 Sodium 135 L Potassium 4.1 Chloride 103 Carbon Dioxide 28.0 Anion Gap 4 L BUN 17 Creatinine 1.03 Estim Creat Clear Calc 90.61 Est GFR (MDRD) Af Amer 95 Est GFR (MDRD) Non-Af 78 BUN/Creatinine Ratio 16.5 Glucose 127 H Calcium 9.2 Troponin I High Sens 9 8 Radiography Diagnostic Testing: Clinical Impression(s) from Imaging Studies Chest X-Ray 10/15/23 20:14 IMPRESSION: Normal x-ray examination of the chest. Electronically Signed: Sumanth Donaldson MD at 20:48 EDT , ED attending interpretation of 2-view chest x-ray shows normal heart size, no acute infiltrate, edema, or effusion. <Dr. Zachary Freeman MD - Last Filed: 10/15/23 22:43> [facility] Lab Data Labs: Laboratory Results - last 24 hr 10/15/23 10/15/23 19:40 21:53 WBC 11.6 H RBC 5.51 Hgb 16.2 Hct 48.8 MCV 88.6 MCH 29.4 MCHC 33.2 RDW Std Deviation 41.4 RDW Coeff of Cassy 12.7 Plt Count 294 MPV 9.0 Immature Gran % (Auto) 0.200 Neut % (Auto) 68.2 Lymph % (Auto) 21.2 Swift % (Auto) 8.7 Eos % (Auto) 1.3 Baso % (Auto) 0.4 Absolute Neuts (auto) 7.9 H Absolute Lymphs (auto) 2.46 Nucleated RBC % 0 Sodium 135 L Potassium 4.1 Chloride 103 Carbon Dioxide 28.0 Anion Gap 4 L BUN 17 Creatinine 1.03 Estim Creat Clear Calc 90.61 Est GFR (MDRD) Af Amer 95 Est GFR (MDRD) Non-Af 78 BUN/Creatinine Ratio 16.5 Glucose 127 H Calcium 9.2 Troponin I High Sens 9 8 Radiography Diagnostic Testing: Clinical Impression(s) from Imaging Studies Chest X-Ray 10/15/23 20:14 IMPRESSION: Normal x-ray examination of the chest. Electronically Signed: Sumanth Donaldson MD at 20:48 EDT , Rhythm Strip Rhythm Strip: Sinus Rhythm Rate: 75 Ectopy: PVC(s) EKG Initial EKG: Attestation: I personally reviewed and interpreted this EKG as follows: Interpretation: Sinus Rhythm and No Acute Injury Pattern Comments: nml EKG except for PVC Prior EKG tracings: available for review Prior: Unchanged Treatment and Re-Evaluation Comments:: I have personally performed a face to face assessment of the patient and have reviewed the [facility] Note. I performed a substantive portion of the visit including all aspects of the following. My linda findings include: History is waxing and waning discomfort and left parascapular area, going into arm and tingling in the fingers on the left. No chest discomfort, dyspnea, palpitations, near-syncope or syncope. No history of cardiac disease except for slight murmur. No history of a stress test. Exam is heart regular, soft systolic murmur, lungs clear, neurovascular intact distally all upper extremities, full range of motion without difficulty. Medical Decison Making cardiac workup negative so far with first troponin, will obtain a second, his heart score is low. Will also try GI cocktail considering possible mimics like esophageal spasm or reflux, could also be cervical radiculopathy, if symptoms persist would follow-up for evaluation for possible MRI C-spine. I agree with the above chest x-ray interpretation by ED physician. Other additions or changes: [None] Discharge Plan Triage Chief Complaint: Chest Pain ED Midlevel Provider: Aleena Crump ED Provider: Zachary Freeman Dx/Rx/DC Orders Clinical Impression: Left arm pain Instructions: ED Pain, Acute, Uncertain Cause Prescriptions: No Action NK Primary Care Provider: Gregory Barnes Referrals: Gregory Barnes DO [Primary Care Provider] - Activity Restrictions/Additional Instructions: These screening tests of your heart are within normal limits. The pain in your left shoulder could be from multiple causes including from your neck or a pinched nerve or from esophageal discomfort which can cause pain in this area. I recommend you follow-up with your primary care doctor. Print Language: Latvian Disposition Disposition: Home, Self Care
[2023-10-15 20:10] LABS: Anion Gap 4 (5-15); BUN 17 mg/dL (7-18); BUN/Creat Ratio 16.5 RATIO (10-20); Calcium,Total 9.2 mg/dL (8.5-10.1); Chloride 103 mmol/L (98-107); Creatinine, Serum 1.03 mg/dL (0.70-1.30); EST Glomerular Filtration Rate 78 mL/min (>60); Est Glom Filt Rate - Afr Amer 95 mL/min (>60); Estimated Creatinine Clearance 90.61 ml/min; Glucose 127 mg/dL (74-106); Potassium 4.1 mmol/L (3.5-5.1); Sodium Level 135 mmol/L (136-145); Troponin-I HS (w/2H Reflex) 9 pg/mL (3.0-78.0)
--- NOTE | 2023-10-15 20:14 | RAD_ITS ---
STUDY: X-RAY CHEST REASON FOR EXAM: Male, 58 years old. chest pain TECHNIQUE: PA and lateral views of the chest. COMPARISON: None. FINDINGS: The lungs are clear and expanded. There is no demonstrated pleural abnormality. Normal size heart. Suspect prominent left epicardial fat pad. Normal mediastinum and tonny. Normal visualized pulmonary arteries. Normal visualized aortic arch and descending thoracic aorta. Normal visualized thoracic spine. Normal visualized ribs, clavicles, and shoulders. There is no demonstrated abnormality of the visualized soft tissue structures of the upper abdomen. RAD/Chest PA and Lateral IMPRESSION: Normal x-ray examination of the chest. Electronically Signed: Sumanth Donaldson MD at 20:48 EDT ,
[2023-10-15 20:24] VITALS: BP 142/96; PULSE 71; RESP 19; O2SAT 94
[2023-10-15] MEDS: Aspirin 81 MG TAB.CHEW 324 MG PO (20:26)
[2023-10-15] MEDS: Ketorolac 15 MG/ML Vial IV (20:44)
[2023-10-15 21:00] VITALS: BP 142/93; PULSE 78; RESP 18; O2SAT 97
[2023-10-15 21:44] LABS: Reflex Troponin-HS? (from REC) Y
[2023-10-15] MEDS: Mag Hydrox/Al Hydrox/Simeth 30 ML UDC PO (21:45)
[2023-10-15 22:26] LABS: Troponin-I HS 8 pg/mL (3.0-78.0)
[2023-10-15 23:00] VITALS: BP 156/93; PULSE 66; RESP 16; TEMP 36.1; O2SAT 96
== END 2023-10-15 23:12 | disposition home or self-care (01) ==
PROVIDERS: Physician Assistant; Emergency Provider Emergency Medicine; PCP Family Medicine; Visit Provider Emergency Medicine
DX: M79.602 Pain in left arm (principal); E11.9 Type 2 diabetes mellitus without complications; I10 Essential (primary) hypertension; Z87.891 Personal history of nicotine dependence
CPT/HCPCS: 71046; 80048; 84484; 85025; 93005; 96374; 99284; A4216